=== PATIENT | female | born 1960 | race Caucasian/White ===

== ENCOUNTER 2017-02-07 06:26 | Day surgery (SDC) | payer OTHER ==
[2017-02-07] MEDS ORDERED: FENTAnyl 50 MCG/ML VIAL ×2 (08:12)
[2017-02-07] MEDS ORDERED: MIDAZOLAM 1 MG/ML 2 ML INJ ×2 (08:12)
== END 2017-02-14 07:06 | disposition home or self-care (01) ==
LOC: GIL 06:26
DX: Z12.11 Encounter for screening for malignant neoplasm of colon (principal); K57.90 Diverticulosis of intestine, part unspecified, without perforation or abscess without bleeding; K64.8 Other hemorrhoids
CPT/HCPCS: 45378